=== PATIENT | male | born 1985 | race Hispanic/Latino ===

== ENCOUNTER 2020-06-26 23:46 | Emergency (ER) | payer SELFPAY ==
[~2020-06-26] VITALS: Ht 180.3 cm; Wt 97.5 kg
[2020-06-27] MEDS ORDERED: HYDROCODONE/APAP 10MG-325MG TAB PO ONE
[2020-06-27] MEDS ORDERED: METHYLPREDNISOLONE SOD SUCC 125 MG/2ML VIAL IM ONE
[2020-06-27] MEDS ORDERED: DIAZEPAM INJ 5 MG/ML 2 ML IV ONE
[2020-06-27] MEDS ORDERED: DIAZEPAM 5 MG TAB PO PRN
[2020-06-27] MEDS ORDERED: KETOROLAC TROMETHAMINE 60 MG/2 ML VIAL IM ONE
[2020-06-27] MEDS ORDERED: METHYLPREDNISOLONE SOD SUCC 125 MG/2ML VIAL IV ONE
[2020-06-27] MEDS ORDERED: KETOROLAC TROMETHAMINE 30 MG/ML VIAL IV STA
[2020-06-27] MEDS ORDERED: DIAZEPAM INJ 5 MG/ML 2 ML ONE (00:13)
[2020-06-27] MEDS ORDERED: HYDROCODONE/APAP 10MG-325MG TAB ONE (00:14)
[2020-06-27] MEDS ORDERED: NAPROXEN250 MG PO (01:32)
[2020-06-27] MEDS ORDERED: VALIUM2 MG PO (01:32)
[2020-06-27] MEDS ORDERED: ROBAXIN-750750 MG PO (01:32)
[2020-06-27 01:38] VITALS: BP 129/67
== END 2020-06-27 01:48 | disposition home or self-care (01) ==
LOC: ER 23:53
DX: M54.6 Pain in thoracic spine (principal); M54.5 Low back pain
CPT/HCPCS: 72128; 72131; 99283; J1885; J2930; J3360

== ENCOUNTER 2020-08-04 04:18 | Emergency (ER) | payer SELFPAY ==
[~2020-08-04] VITALS: Ht 180.3 cm; Wt 97.5 kg
[~2020-08-04 04:18] MED LIST: NAPROXEN250 MG PO; ROBAXIN-750750 MG PO; VALIUM2 MG PO
== END 2020-08-04 05:50 | disposition home or self-care (01) ==
LOC: ER 05:37
DX: K60.3 Anal fistula (principal); K62.89 Other specified diseases of anus and rectum
CPT/HCPCS: 99282

== ENCOUNTER 2021-11-01 04:49 | Emergency (ER) | payer SELFPAY ==
[~2021-11-01] VITALS: Ht 180.3 cm; Wt 97.5 kg
[2021-11-01 05:21] LABS: BASOPHILS % 0.2 % (0.0-1.0); EOSINOPHILS # (AUTO) 0.1 (0.0-0.4); EOSINOPHILS % 0.7 % (0.0-6.0); HEMATOCRIT 46.8 % (38.2-49.6); HEMOGLOBIN 15.5 g/dL (14.0-18.0); LYMPHOCYTES # (AUTO) 0.8 (1.0-3.2); LYMPHOCYTES % 6.9 % (18.0-39.1); MEAN CORPUSCULAR HEMOGLOBIN 30.8 pg (28-32); MEAN CORPUSCULAR HGB CONC 33.1 g/dL (31-35); MONOCYTES # (AUTO) 0.8 (0.2-0.8); MONOCYTES % 6.2 % (4.4-11.3); NEUTROPHILS # (AUTO) 10.4 (2.1-6.9); NEUTROPHILS % 85.5 % (38.7-80.0); PLATELET COUNT 268 x10e3/uL (140-360); RED BLOOD COUNT 5.03 x10e6/uL (4.3-5.7); RED CELL DISTRIBUTION WIDTH 12.2 % (11.7-14.4)
[2021-11-01] MEDS ORDERED: ACETAMINOPHEN 325 MG TAB ONE (05:21)
[2021-11-01] MEDS ORDERED: ONDANSETRON HCL INJ 2MG/ML 2ML 2 MG/ML VIAL IV STA (05:22)
[2021-11-01 05:26] LABS: AMPHETAMINES SCREEN,URINE NEGATIVE (NEGATIVE); BENZODIAZEPINES SCREEN,URINE NEGATIVE (NEGATIVE); CLARITY,URINE CLOUDY (CLEAR); COLOR,URINE YELLOW (YELLOW); KETONES,URINE NEGATIVE (NEGATIVE); LEUKOCYTE ESTERASE ,URINE NEGATIVE (NEGATIVE); NITRITE,URINE NEGATIVE (NEGATIVE); PHENCYCLIDINE SCREEN,URINE NEGATIVE (NEGATIVE); PROTEIN,URINE DIPSTICK 1+ (NEGATIVE)
[2021-11-01 05:27] LABS: URINE UROBILINOGEN 0.2 mg/dL (0.2 - 1)
[2021-11-01] MEDS ORDERED: SODIUM CHLORIDE 0.9% 1000ML 1,000 ML ONE ×2 (05:29→05:32)
[2021-11-01] MEDS ORDERED: ONDANSETRON HCL INJ 2MG/ML 2ML 2 MG/ML VIAL ONE (05:29)
[2021-11-01] MEDS ORDERED: SODIUM CHLORIDE 0.9% 1000ML 1,000 ML IV ONE (05:30)
[2021-11-01] MEDS ORDERED: ACETAMINOPHEN 325 MG TAB PO ONE (05:30)
[2021-11-01 05:41] LABS: ALBUMIN 4.3 g/dL (3.5-5.0); ALBUMIN/GLOBULIN RATIO 1.1 (0.8-2.0); CALCIUM 8.5 mg/dL (8.4-10.2); CREATININE, SERUM 1.37 mg/dL (0.72-1.25)
[2021-11-01 05:44] LABS: BACTERIA,URINE MODERATE /HPF; EPITHELIAL CELLS,URINE FEW /LPF; RBC,URINE 0-5 /HPF (0-5)
[2021-11-01 05:45] LABS: MUCUS,URINE MODERATE (RARE)
[2021-11-01] MEDS ORDERED: DICYCLOMINE HCL 20 MG/2 ML VIAL IM ONE (06:30)
[2021-11-01 07:47] VITALS: BP 117/68
== END 2021-11-01 07:30 | disposition home or self-care (01) ==
LOC: ER 05:14
DX: R10.13 Epigastric pain (principal); K52.9 Noninfective gastroenteritis and colitis, unspecified; R11.2 Nausea with vomiting, unspecified
CPT/HCPCS: 36415; 74177; 80053; 80307; 81001; 83605; 83690; 85025; 87040; 93005; 99284; J0500; J2405; J7030